=== PATIENT | male | born 1975 | race Caucasian/White ===

== ENCOUNTER 2016-11-24 12:25 | Emergency (ER) | payer SELFPAY ==
[~2016-11-24] VITALS: Ht 170.2 cm; Wt 104.2 kg
[~2016-11-24 12:25] MED LIST: ASPI325T PO; [UNRECOGNIZED DRUG - CODE]
[2016-11-24 12:38] VITALS: BP 133/83; PULSE 82; RESP 18; TEMP 98.7; O2SAT 98
--- NOTE | 2016-11-24 13:26 | PD ---
HPI Chief Complaint: Musculoskeletal Complaint Time Seen by Provider: 12:48 Travel History International Travel<30 days: No Contact w/Intl Traveler<30days: No Traveled to known affect area: No History of Present Illness HPI 41 y/o male presents with left knee pain and requesting drainage. He notes following with an orthopedic physician and gets it drained every couple months for a bruised knee from prior trauma. He denies any recent trauma or fever or other complaints. quality of pain is sharp. severity is moderate. pain is worse with movement. History Past Medical Histgory Hx Cancer: No Hx Chemotherapy: No Hx Radiation Therapy: No Social History Alcohol Use: No (denies) Tobacco Use: No (quit) Allergies-Medications (Allergen,Severity, Reaction): Coded Allergies: No Known Allergies (Unverified , 11/24/16) Reported Meds & Prescriptions Reported Meds & Active Scripts Active No Active Prescriptions or Reported Medications Review of Systems Except as stated in HPI: all other systems reviewed are Neg Physical Exam Narrative GENERAL: Well-nourished, well-developed patient. SKIN: Warm and dry. HEAD: Normocephalic and atraumatic. EYES: No injection or drainage. ENT: No nasal drainage noted. NECK: Supple, trachea midline. CARDIOVASCULAR: Regular rate and rhythm RESPIRATORY: no increased effort. No accessory muscle use. EXTREMITIES: No edema. Pain with palpation of left knee with mild effusion, no overlaying joint warmth or redness, no pain with other joints , neurovascularly intact, no lacerations over, compartments soft. NEUROLOGICAL: Awake and alert. Motor and sensory grossly within normal limits. Normal speech. Data Data Last Documented VS Vital Signs Date Time Temp Pulse Resp B/P (MAP) Pulse Ox O2 Delivery O2 Flow Rate FiO2 11/24/16 12:38 98.7 82 18 133/83 (100) 98 MDM Medical Screen Exam Complete: Yes Emergency Medical Condition: No Narrative Course A medical screening exam was performed: At the time of evaluation the presenting medical condition was determined not to be of an emergent nature. The patient was given the option of receiving additional care, but declined. Patient was given options for additional community resources from which to obtain care. The Patient Has Been advised to seek medical attention for their presenting complaint. The patient has been advised to return to the ER at any time if an emergent condition develops. Primary Impression: Knee pain Qualified Codes: M25.562 - Pain in left knee Scripts No Active Prescriptions or Reported Meds Disposition: 07 EDGO-ED USE ONLY Teresa Cheung MD Nov 24, 2016 13:26
== END 2016-11-24 13:16 | disposition left against medical advice (07) ==
LOC: PHED 12:25
DX: M25.562 Pain in left knee (principal)
CPT/HCPCS: 99281